=== PATIENT | male | born 1945 | race Hispanic/Latino ===

== ENCOUNTER 2018-09-15 13:25 | Observation (INO) | payer MEDICARE ==
[~2018-09-15] VITALS: Ht 175.3 cm; Wt 80.3 kg
[~2018-09-15 13:25] MED LIST: ASPIR 8181 MG PO; CEPHALEXIN500 MG PO; COREG3.125 MG PO; GLIPIZIDE5 MG PO; LEVEMIR100 UNIT/1 SQ; METFORMIN HCL500 MG PO; PLAVIX75 MG PO; PRAVASTATIN SOD20 MG PO
[2018-09-15] MEDS ORDERED: ASPIRIN 81 MG CHEW TAB PO ONE ×2 (14:15→21:00)
[2018-09-15 14:21] LABS: BILIRUBIN,URINE 1+ (NEGATIVE); CLARITY,URINE SL CLOUDY (CLEAR); COLOR,URINE STRAW (YELLOW); KETONES,URINE TRACE (NEGATIVE); LEUKOCYTE ESTERASE ,URINE NEGATIVE (NEGATIVE); NITRITE,URINE NEGATIVE (NEGATIVE); PROTEIN,URINE DIPSTICK 1+ (NEGATIVE); URINE UROBILINOGEN 1 mg/dL (0.2 - 1)
--- NOTE | 2018-09-15 14:26 | Diagnostic Imaging Report ---
Examination: Single AP view of the chest. COMPARISON: None. INDICATION: Weakness DISCUSSION: Lines/tubes: None. Lungs: The lungs are well inflated and clear. No pneumonia or pulmonary edema. Pleura: No pleural effusion or pneumothorax. Heart and mediastinum: The heart and the mediastinum are unremarkable. Bones and soft tissues: No acute bony abnormalities. IMPRESSION: 1. No acute cardiopulmonary abnormalities. Signed by: Dr. Adeel Dominique M.D. on 09/15/2018 2:22 PM
[2018-09-15 14:29] LABS: BACTERIA,URINE FEW /HPF; HYALINE CASTS 0-1 (0-1); MUCUS,URINE MANY (RARE)
[2018-09-15 14:32] LABS: BASOPHILS % 0.7 % (0.0-1.0); EOSINOPHILS # (AUTO) 0.1 (0.0-0.4); HEMATOCRIT 41.9 % (38.2-49.6); HEMOGLOBIN 14.8 g/dL (14.0-18.0); LYMPHOCYTES # (AUTO) 0.9 (1.0-3.2); LYMPHOCYTES % 15.3 % (18.0-39.1); MEAN CORPUSCULAR HGB CONC 35.3 g/dL (31-35); MEAN CORPUSCULAR VOLUME 87.7 fL (81-99); MONOCYTES # (AUTO) 0.6 (0.2-0.8); MONOCYTES % 9.4 % (4.4-11.3); NEUTROPHILS # (AUTO) 4.4 (2.1-6.9); NEUTROPHILS % 73.4 % (38.7-80.0); PLATELET COUNT 223 x10e3/uL (140-360); RED BLOOD COUNT 4.78 x10e6/uL (4.3-5.7); RED CELL DISTRIBUTION WIDTH 12.2 % (11.7-14.4)
[2018-09-15 14:39] LABS: INR 0.94; PROTHROMBIN TIME 13.4 seconds (11.9-14.5)
[2018-09-15 14:40] LABS: PARTIAL THROMBOPLASTIN TIME 30.3 seconds (23.8-35.5)
[2018-09-15 14:49] LABS: ALANINE AMINOTRANSFERASE 17 IU/L (0-55); ALBUMIN/GLOBULIN RATIO 1.1 (0.8-2.0); ALKALINE PHOSPHATASE 81 IU/L (40-150); AMYLASE 49 U/L (25-125); ANION GAP 12.5 mmol/L (8-16); BLOOD UREA NITROGEN 19 mg/dL (7-26); BUN/CREATININE RATIO 24 (6-25); CALCIUM 9.8 mg/dL (8.4-10.2); CARBON DIOXIDE 25 mmol/L (22-29); CHLORIDE 106 mmol/L (98-107); CREATINE KINASE 259 IU/L (30-200); CREATININE, SERUM 0.78 mg/dL (0.72-1.25); EST GLOMERULAR FILTRATION RATE > 60 ML/MIN (60-); GLUCOSE 173 mg/dL (74-118); LIPASE 31 U/L (8-78); MAGNESIUM 2.2 MG/DL (1.3-2.1); POTASSIUM 3.5 mmol/L (3.5-5.1); SODIUM 140 mmol/L (136-145)
[2018-09-15] MEDS ORDERED: DEXTROSE 50% SYRINGE 50 ML IV PRN (16:15)
[2018-09-15] MEDS ORDERED: ONDANSETRON HCL INJ 2 MG/ML VIAL IV PRN (16:15)
--- OUTSIDE RECORDS SUMMARY | 2018-09-15 16:27 | XMS REPORT ---
Author Author [facility] Address Unknown Phone Unavailable Care Team Providers Care Machine Candle Molder Name Role Phone Willa JOLLY Unavailable Unavailable Problems This patient has no known problems. Allergies, Adverse Reactions, Alerts This patient has no known allergies or adverse reactions. Medications This patient has no known medications. Results Test Description Test Time Test Comments Text Results Atomic Results Result Comments CHEST SINGLE (PORTABLE) 2018-09-15 14:21:00 [place] [address] Patient Name: NICK JEFFERSON MR #: [id number] : 1945 Age/Sex: 72/M Req #: [id number] Adm Physician: Ordered by: MAME HERRING RESPIRATORY DIRECTOR Report #: [id number] Location: ER Room/Bed: Procedure: [id number] DX/CHEST SINGLE (PORTABLE) Exam Date: 09/15/18 Exam Time: 1405 REPORT STATUS: Signed Examination: Single AP view of the chest. COM PARISON: None. INDICATION: Weakness DISCUSSION: Lines/tubes: None. Lungs: The lungs are well inflated and clear. No pneumonia or pulmonary edema. Pleura: No pleural effusion or pneumothorax. Heart and mediastinum: The heart and the mediastinum are unremarkable. Bones and soft tissues: No acute bony abnormalities. IMPRESSION: 1. No acute cardiopulmonary abnormalities. Signed by: Dr. Bella Lyles M.D. on 09/15/2018 2:22 PM Dictated By: BELLA LYLES MD 142 Transcribed By: CARLOS on 09/15/18 142 COPY TO: MAME HERRING NP
[2018-09-15] MEDS ORDERED: HEPARIN SOD (PORCINE) 5,000 UNIT/ML VIAL IV ONE (17:00)
[2018-09-15] MEDS: INSULIN LISPRO 100 UNIT/1 ML 3ML VIAL SQ SCH ×2 (17:05→20:39)
[2018-09-15] MEDS: GLIPIZIDE 5 MG TAB PO SCH (17:11)
[2018-09-15] MEDS: CARVEDILOL 3.125 MG TAB PO SCH (17:29)
--- NOTE | 2018-09-15 17:58 | History and Physical ---
INDICATIONS: Myocardial infarction. HISTORY OF PRESENT ILLNESS: Mr. Montano is a diabetic,72-year-old gentleman with history of moderate coronary artery disease and known 50% coronary blockage by angiography performed a year ago. He comes in with just feeling unwell, palpitations, heaviness and fullness in his chest and epigastric region. His symptoms have resolved. He thought this was hypoglycemia; however, his blood sugars have been normal. During his evaluation in the emergency room, his electrocardiogram showed left ventricular hypertrophy; however, CPK and CPK-MB are elevated with trivial elevation of troponin consistent with myocardial infarction. REVIEW OF SYSTEMS: Negative except as dictated in the history of present illness. PAST MEDICAL HISTORY: Diabetes mellitus, coronary artery disease, hypertension and hyperlipidemia. SOCIAL HISTORY: Patient does not smoke or drink. ALLERGIES: BUTORPHANOL, CODEINE, HYDROCODONE. MEDICATIONS AT HOME: Were reviewed. The patient is on clopidogrel. PHYSICAL EXAMINATION: VITALS: Afebrile. Heart rate 82, blood pressure 152/87, O2 sats 99%. CARDIOVASCULAR: Regular rhythm, No S4 gallop, no murmurs. LUNGS: Clear to auscultation bilaterally. ABDOMEN: Soft. Bowel sounds heard adequately EXTREMITIES: Pedal pulses are 2+. Chest x-ray and EKG were reviewed. LABORATORY DATA: Serum creatinine is 0.78, CPK 259, CPK-MB 2.2, troponin 0.016. Blood sugars are 165. Hemoglobin 14.8. ASSESSMENT: Non-ST segment elevation myocardial infarction. RECOMMENDATIONS: Anticoagulation with aspirin, intravenous heparin as well as clopidogrel. Continue beta tiara and statin. Echocardiogram to evaluate for ejection fraction and valvular function. Coronary angiography is indicated. I will coordinate this with the laborer powerhouse. I thank Dr. Mazariegos for this consultation. Job#: [id number]
[2018-09-15 18:09] VITALS: BP 161/79
[2018-09-15 18:25] VITALS: BP 161/79
[2018-09-15 18:31] VITALS: BP 161/79
[2018-09-15 20:00] VITALS: BP 143/67
[2018-09-15] MEDS ORDERED: ASPIRIN 81 MG CHEW TAB PO SCH (21:00)
[2018-09-15] MEDS ORDERED: PRAVASTATIN 20 MG TAB PO SCH (21:00)
[2018-09-15 22:44] LABS: CREATINE KINASE MB 8.8 ng/mL (0-5.0)
[2018-09-16] VITALS: BP 137/75
[2018-09-16 04:00] VITALS: BP 128/74
[2018-09-16 07:06] LABS: BASOPHILS # (AUTO) 0.1 (0.0-0.1); BASOPHILS % 0.9 % (0.0-1.0); EOSINOPHILS # (AUTO) 0.2 (0.0-0.4); HEMATOCRIT 38.6 % (38.2-49.6); HEMOGLOBIN 13.5 g/dL (14.0-18.0); LYMPHOCYTES # (AUTO) 1.3 (1.0-3.2); LYMPHOCYTES % 23.7 % (18.0-39.1); MEAN CORPUSCULAR VOLUME 88.7 fL (81-99); MONOCYTES # (AUTO) 0.8 (0.2-0.8); MONOCYTES % 13.9 % (4.4-11.3); NEUTROPHILS # (AUTO) 3.3 (2.1-6.9); NEUTROPHILS % 58.1 % (38.7-80.0); PLATELET COUNT 182 x10e3/uL (140-360); RED BLOOD COUNT 4.35 x10e6/uL (4.3-5.7); RED CELL DISTRIBUTION WIDTH 12.2 % (11.7-14.4)
[2018-09-16 07:26] LABS: ALANINE AMINOTRANSFERASE 14 IU/L (0-55); ALBUMIN 3.3 g/dL (3.5-5.0); ALKALINE PHOSPHATASE 66 IU/L (40-150); ANION GAP 10.7 mmol/L (8-16); BLOOD UREA NITROGEN 17 mg/dL (7-26); BUN/CREATININE RATIO 22 (6-25); CALCIUM 9.3 mg/dL (8.4-10.2); CARBON DIOXIDE 26 mmol/L (22-29); CHLORIDE 105 mmol/L (98-107); CHOL/HDL RATIO 2.7 (3.9-4.7); CHOLESTEROL 145 MD/DL (0-199); CREATININE, SERUM 0.78 mg/dL (0.72-1.25); EST GLOMERULAR FILTRATION RATE > 60 ML/MIN (60-); GLUCOSE 151 mg/dL (74-118); HDL CHOLESTEROL 53 MG/DL (40-60); LDL CHOLESTEROL 69 MG/DL (60-130); POTASSIUM 3.7 mmol/L (3.5-5.1); SODIUM 138 mmol/L (136-145); TRIGLYCERIDES 117 MG/DL (0-149)
[2018-09-16] MEDS: INSULIN LISPRO 100 UNIT/1 ML 3ML VIAL SQ SCH (07:30)
[2018-09-16] MEDS: GLIPIZIDE 5 MG TAB PO SCH (08:10)
[2018-09-16] MEDS: CARVEDILOL 3.125 MG TAB PO SCH (08:10)
[2018-09-16 08:17] VITALS: BP 115/67
[2018-09-16] MEDS ORDERED: CLOPIDOGREL BISULFATE 75 MG TAB PO SCH ×2 (09:00)
[2018-09-16] MEDS ORDERED: NON-FORMULARY MEDICATION (Insulin Detemir (Levemir) 40 UNITS) SQ SCH (09:00)
[2018-09-16] MEDS ORDERED: ASPIRIN 325 MG TAB EC PO SCH (09:00)
[2018-09-16] MEDS ORDERED: INSULIN DETEMIR 100 UNIT/ML PEN SQ SCH (09:00)
[2018-09-16] MEDS ORDERED: COREG3.125 MG PO (09:05)
[2018-09-16] MEDS ORDERED: LISINOPRIL2.5 MG PO (09:06)
--- NOTE | 2018-09-16 10:39 | Progress Note ---
DATE: September 16, 2018 CARDIOLOGY PROGRESS NOTE SUBJECTIVE: Patient is without any complaints this morning. He states that he feels well. He denies any shortness of breath, chest pain, or palpitations. He states that he has been out of some of his home medications for the last 2 weeks. OBJECTIVE VITAL SIGNS: Temperature 96.6, pulse 82, respiratory rate 16, blood pressure 115/67, oxygen saturation 99% on room air. GENERAL: Alert and oriented x3, resting comfortably in bed, does not appear to be in any acute distress. LUNGS: Clear to auscultation throughout. No wheezing. No rhonchi or crackles. CARDIOVASCULAR: Regular rate and rhythm. Normal S1, S2. No S3 or S4 auscultated. NECK: Supple. No JVD noted. ABDOMEN: Rounded, soft, nontender. EXTREMITIES: Lower extremities; no edema, 2+ pulses. CARDIOVASCULAR MEDICATIONS 1. Plavix 75 mg p.o. daily. 2. Coreg 3.125 mg p.o. b.i.d. 3. Aspirin 81 mg p.o. h.s. 4. Glipizide 5 mg p.o. b.i.d. LABS: WBC 5.62, hemoglobin 13.5, hematocrit 38.6, platelets 182. Sodium 138, potassium 3.7, BUN 17, creatinine 0.78, glucose 153, AST 21, ALT 14. CK-MB 7.0, creatinine kinase 178, troponin 0.015, total cholesterol 145, LDL 69, HDL 53. TELEMETRY: Sinus rhythm. ASSESSMENT 1. Reports of arrhythmia. 2. History of hypertension. 3. Coronary artery disease with mild disease per patient reporting. RECOMMENDATIONS: Continue the above-listed cardiac medications. Patient advised to increase fluids to 2-3 L every 24 hours. Patient is to follow up with cardiology next week, Tuesday or Tuesday. At that time, labs will be repeated. We will evaluate ischemic workup with a nuclear stress test as outpatient. We will continue to monitor this patient very closely. Echocardiogram repeated this morning, we will review. Dictated by: Soha Serna NP Job#: [id number] ROSIBEL
== END 2018-09-16 09:39 | disposition home or self-care (01) ==
LOC: ER 13:25 → ERHOLD 16:24 → IMCU 17:59
PROVIDERS: ADMIT Internal Medicine Interventional Cardiology; ATTEND Internal Medicine Interventional Cardiology
DX: I21.4 Non-ST elevation (NSTEMI) myocardial infarction (principal); R00.2 Palpitations; R94.31 Abnormal electrocardiogram [ECG] [EKG]; I51.7 Cardiomegaly; E78.5 Hyperlipidemia, unspecified; E11.9 Type 2 diabetes mellitus without complications; I48.91 Unspecified atrial fibrillation; Z87.891 Personal history of nicotine dependence; I25.10 Atherosclerotic heart disease of native coronary artery without angina pectoris; Z88.5 Allergy status to narcotic agent; Z88.8 Allergy status to other drugs, medicaments and biological substances
CPT/HCPCS: 36415 ×2; 71045; 80053 ×2; 80061; 81001; 82150; 82550 ×2; 82553 ×2; 82948 ×2; 83690; 83735; 84484 ×2; 85025 ×2; 85610; 85730; 93005; 93306; 99284; G0378 ×2; J1644

== ENCOUNTER 2018-10-06 08:23 | Observation (INO) | payer MEDICARE ==
[~2018-10-06] VITALS: Ht 175.3 cm; Wt 80.0 kg
[~2018-10-06 08:23] MED LIST changes: +LISINOPRIL2.5 MG PO
--- NOTE | 2018-10-06 08:41 | NUR ---
WENT TO LOBBY TO BRING PT BACK TO ER RM 3. SON INFORMED ME THAT PT IN RESTROOM AND CURRENTLY HAVING LOOSE STOOL INSTEAD OF CONSTIPATION DUE TO TAKING AN OTC MED LAST NIGHT. INFORMED DR. GRANADOS AND CHARGE NURSE TC LEON.
[2018-10-06] MEDS ORDERED: SODIUM CHLORIDE 0.9% 1000ML 1,000 ML IV STA (08:58)
[2018-10-06] MEDS ORDERED: MORPHINE SULFATE INJ 4 MG/ML INJ IV STA (08:58)
[2018-10-06] MEDS ORDERED: FAMOTIDINE 20 MG/2 ML VIAL IV ONE (09:00)
[2018-10-06] MEDS ORDERED: ONDANSETRON HCL INJ 2 MG/ML VIAL IV ONE (09:00)
[2018-10-06 09:13] LABS: BASOPHILS # (AUTO) 0.1 (0.0-0.1); BASOPHILS % 0.6 % (0.0-1.0); EOSINOPHILS % 0.5 % (0.0-6.0); HEMATOCRIT 40.5 % (38.2-49.6); HEMOGLOBIN 14.4 g/dL (14.0-18.0); LYMPHOCYTES # (AUTO) 0.9 (1.0-3.2); LYMPHOCYTES % 9.7 % (18.0-39.1); MEAN CORPUSCULAR HEMOGLOBIN 31.2 pg (28-32); MEAN CORPUSCULAR HGB CONC 35.6 g/dL (31-35); MEAN CORPUSCULAR VOLUME 87.7 fL (81-99); MONOCYTES # (AUTO) 0.6 (0.2-0.8); MONOCYTES % 6.9 % (4.4-11.3); NEUTROPHILS # (AUTO) 7.2 (2.1-6.9); NEUTROPHILS % 81.8 % (38.7-80.0); PLATELET COUNT 217 x10e3/uL (140-360); RED BLOOD COUNT 4.62 x10e6/uL (4.3-5.7); RED CELL DISTRIBUTION WIDTH 12.2 % (11.7-14.4)
[2018-10-06] MEDS ORDERED: MINERAL OIL 132 ML BTL PR ONE (09:15)
[2018-10-06] MEDS ORDERED: DIATRIZOATE MEGL/DIATRIZOA SOD 30 ML BTL PO ONE (09:16)
[2018-10-06 09:30] LABS: ALANINE AMINOTRANSFERASE 13 IU/L (0-55); ALBUMIN 3.8 g/dL (3.5-5.0); ALKALINE PHOSPHATASE 79 IU/L (40-150); ANION GAP 13.6 mmol/L (8-16); BLOOD UREA NITROGEN 15 mg/dL (7-26); BUN/CREATININE RATIO 18 (6-25); CALCIUM 9.5 mg/dL (8.4-10.2); CARBON DIOXIDE 23 mmol/L (22-29); CHLORIDE 104 mmol/L (98-107); CREATININE, SERUM 0.82 mg/dL (0.72-1.25); EST GLOMERULAR FILTRATION RATE > 60 ML/MIN (60-); GLUCOSE 219 mg/dL (74-118); POTASSIUM 3.6 mmol/L (3.5-5.1); SODIUM 137 mmol/L (136-145)
--- NOTE | 2018-10-06 10:51 | Diagnostic Imaging Report ---
PROCEDURE: CT ABDOMEN AND PELVIS WITHOUT CONTRAST TECHNIQUE: The abdomen and pelvis were scanned utilizing a multidetector helical scanner from the diaphragm to the lesser trochanter without IV contrast. Oral Gastrografin was administered. Coronal and sagittal multiplanar reformations were obtained. Dose sparing pathology was utilized. DLP: 461.58 mGy-cm COMPARISON: None. INDICATIONS: OBSTRUCTION, CONSTIPATION FINDINGS: ABSENCE OF INTRAVENOUS CONTRAST DECREASES SENSITIVITY FOR DETECTION OF FOCAL LESIONS AND VASCULAR PATHOLOGY. LOWER THORAX: Normal. HEPATOBILIARY: No focal hepatic lesions. No biliary ductal dilatation. SPLEEN: No splenomegaly. PANCREAS: No focal masses or ductal dilatation. ADRENALS: No adrenal nodules. KIDNEYS/URETERS: There are multiples renal cystic lesions with the largest present on the right side measuring 3.5 cm. A right lower pole cystic lesion has a vague area of rim calcification. Three phase renal mass protocol CT is recommended for further evaluation. PELVIC ORGANS/BLADDER: Prostate calcification. PERITONEUM / RETROPERITONEUM: No free air or fluid. 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 LYMPH NODES: No lymphadenopathy. VESSELS: Vascular calcification. GI TRACT: No distention or wall thickening. Mild amount of fecal material present within the right colon. The appendix is normal. BONES AND SOFT TISSUES: Multilevel degenerative changes of the spine with disc space narrowing at L2-L3, L3-L4, severe at L4-L5 and moderate at L5-S1. IMPRESSION: 1. No acute abnormality within the abdomen or pelvis. 2. Multiple renal cystic lesions with an indeterminant right lower pole lesion with calcification present. 3. Followup elective three-phase renal mass protocol CT is recommended. 4. Mild amount of residual fecal material within the right colon. Jese Gonzalez D.O. Dictated by: Jese Gonzalez D.O. on 10/06/2018 at 11:00 Electronically approved by: Jese Gonzalez D.O. on 10/06/2018 at 11:00
[2018-10-06] MEDS ORDERED: ZOLPIDEM TARTRATE 5 MG TAB PO PRN ×2 (12:45→13:30)
[2018-10-06] MEDS ORDERED: PEG (High)/E-LYTE SOLN 4,000 ML BTL PO ONE (12:45)
[2018-10-06] MEDS ORDERED: SOD PHOSPHATE/SOD BIPHOSPHATE ENEMA 132 ML BTL PR PRN (12:45)
[2018-10-06] MEDS ORDERED: LACTULOSE SYRUP 20 GM/30 ML UDC PO PRN (12:45)
[2018-10-06] MEDS ORDERED: ONDANSETRON HCL INJ 2 MG/ML VIAL IV PRN (12:45)
[2018-10-06] MEDS ORDERED: ENALAPRILAT IV INJ 1.25 MG/ML VIAL IV PRN (12:45)
[2018-10-06] MEDS ORDERED: MAGNESIUM HYDROXIDE 30 ML UDC PO ONE (12:45)
[2018-10-06] MEDS ORDERED: DIPHENHYDRAMINE HCL INJ 50 MG/ML VIAL IV PRN ×2 (12:45→13:30)
[2018-10-06] MEDS ORDERED: HYDROMORPHONE 2MG/ML 2 MG/ML ML IV PRN (13:30)
[2018-10-06 13:59] LABS: BILIRUBIN,URINE NEGATIVE (NEGATIVE); CLARITY,URINE CLEAR (CLEAR); COLOR,URINE YELLOW (YELLOW); KETONES,URINE TRACE (NEGATIVE); LEUKOCYTE ESTERASE ,URINE NEGATIVE (NEGATIVE); NITRITE,URINE NEGATIVE (NEGATIVE); PROTEIN,URINE DIPSTICK NEGATIVE (NEGATIVE); URINE UROBILINOGEN 0.2 mg/dL (0.2 - 1)
[2018-10-06 14:32] LABS: BACTERIA,URINE FEW /HPF; TRANSITIONAL EPI CELLS,URINE FEW; WBC,URINE (MAN) 0-5 /HPF (0-5)
[2018-10-06 14:33] LABS: MUCUS,URINE RARE (RARE)
--- NOTE | 2018-10-06 17:00 | NUR ---
Patient received from ER. Respirations even and unlabored, no distress noted at this time. Denies any pain at the moment. Bed locked and in low position, and call light within reach.
[2018-10-06 17:25] VITALS: BP 166/82
--- NOTE | 2018-10-06 18:50 | NUR ---
WALKING ROUNDS PERFORMED, RECEIVED PT SITTING ON TOILET, PT IS AAOX3, RR EVEN AND NON-LABORED, ON RA. LEFT PT SITTING ON TOILET WITH INSTRUCTIONS TO PULL RED CORD FOR ASSISTANCE.
[2018-10-06 20:00] VITALS: BP 123/75
[2018-10-06] MEDS ORDERED: HYDROCORTISONE 2.5% PR CRM 1 OZ TUBE PR PRN (21:30)
--- NOTE | 2018-10-06 21:32 | NUR ---
SPOKE WITH MD REED COVERING FOR MD PUENTE, INFORMED MD OF PT REPORTS OF BURNING AT THE RECTUM AND PT HAVING CONSTANT BM'S. NEW ORDERS RECEIVED.
[2018-10-06 21:40] VITALS: BP 123/75
[2018-10-07] VITALS: BP 136/78
[2018-10-07 04:00] VITALS: BP 148/78
[2018-10-07 06:06] LABS: BASOPHILS # (AUTO) 0.1 (0.0-0.1); BASOPHILS % 0.5 % (0.0-1.0); EOSINOPHILS % 0.3 % (0.0-6.0); HEMATOCRIT 42.4 % (38.2-49.6); HEMOGLOBIN 14.8 g/dL (14.0-18.0); LYMPHOCYTES # (AUTO) 1.3 (1.0-3.2); LYMPHOCYTES % 11.9 % (18.0-39.1); MEAN CORPUSCULAR HEMOGLOBIN 30.7 pg (28-32); MEAN CORPUSCULAR HGB CONC 34.9 g/dL (31-35); MONOCYTES % 9.5 % (4.4-11.3); NEUTROPHILS # (AUTO) 8.3 (2.1-6.9); NEUTROPHILS % 77.5 % (38.7-80.0); PLATELET COUNT 227 x10e3/uL (140-360); RED BLOOD COUNT 4.82 x10e6/uL (4.3-5.7); RED CELL DISTRIBUTION WIDTH 12.1 % (11.7-14.4)
[2018-10-07 06:28] LABS: ANION GAP 11.1 mmol/L (8-16); BLOOD UREA NITROGEN 12 mg/dL (7-26); BUN/CREATININE RATIO 15 (6-25); CALCIUM 10.1 mg/dL (8.4-10.2); CARBON DIOXIDE 29 mmol/L (22-29); CHLORIDE 102 mmol/L (98-107); CREATININE, SERUM 0.79 mg/dL (0.72-1.25); EST GLOMERULAR FILTRATION RATE > 60 ML/MIN (60-); GLUCOSE 183 mg/dL (74-118); POTASSIUM 4.1 mmol/L (3.5-5.1); SODIUM 138 mmol/L (136-145)
[2018-10-07 08:00] VITALS: BP 139/75
[2018-10-07] MEDS ORDERED: LISINOPRIL 2.5 MG TAB PO SCH (09:00)
[2018-10-07] MEDS ORDERED: METFORMIN HCL 500 MG TAB PO SCH (09:00)
[2018-10-07] MEDS ORDERED: CARVEDILOL 3.125 MG TAB PO SCH (09:00)
--- NOTE | 2018-10-07 09:03 | NUR ---
ASSESSMENT COMPLETE NO DISTRESS NOTED,UPDATED ON POC VOICED UNDERSTANDING, DENIES PAIN AT THIS TIME, R AC F20G NO SS OF INFILTRATION NOTED, NO OTHER CO VOICED CALL LIGHT IN REACH WILL CONTINUE TO MONITOR
[2018-10-07 09:07] VITALS: BP 139/75
--- NOTE | 2018-10-07 09:46 | NUR ---
PAGED DR PARIKH INSOLE CHANNELER FOR DR PUENTE, RE: PT BEING DISCHARGED. AWAITING CALL BACK
--- NOTE | 2018-10-07 09:49 | NUR ---
SPOKE WITH DR PARIKH PT OK TO DC HOME PER GI STANDPOINT,
--- NOTE | 2018-10-07 10:17 | History and Physical ---
HISTORY AND PHYSICAL AND DISCHARGE SUMMARY CHIEF COMPLAINT: Abdominal pain, constipation. HPI: This is a 72-year-old male with past medical history of hypertension and diabetes, who comes into the ED with complaints of constipation ongoing for the last 3 days prior to arrival to the hospital. Patient reports that he has increased amounts of starches due to the holidays, has been severely constipated to the point that when he was on the restroom, he was trying to defecate but he has severe pain in the rectum leading to a possible hemorrhoid. Patient denies any chest pain or palpitations. He stated that he has never experienced this before. Patient was seen and evaluated at bedside on the medical floor, currently doing well with no other issues at this time. He has already received some stool softeners overnight and he has now had several bowel movements. REVIEW OF SYSTEMS: Pertinent positive: Constipation, abdominal pain. Pertinent negatives: Denies any chest pain, palpitations, nausea, vomiting, diarrhea, dysuria, hematuria, frequency, urgency, lightheadedness, dizziness, headache, shortness of breath, cough, congestion, fever, or any other complaints. The rest of 14-point review of systems have been reviewed with the patient and are negative. ALLERGIES: TO CODEINE, HYDROCODONE, AND BUTORPHANOL. HOME MEDICATIONS: He takes; 1. Aspirin 81 mg daily. 2. Coreg 6.25 mg p.o. b.i.d. 3. Lisinopril 5 mg daily. 4. Metformin 1000 mg daily. 5. Lovastatin 20 mg daily. PAST MEDICAL HISTORY: Hypertension, insomnia, hyperlipidemia, constipation. PAST SURGICAL HISTORY: Reports none. FAMILY HISTORY: Hypertension and diabetes. SOCIAL HISTORY: No drugs, no alcohol, does not smoke. Good social support. LAB FINDINGS: Show white count is 10.7, hemoglobin 14.8, hematocrit is 42, platelets of 227. Chemistry: Sodium 138, potassium 4.1, chloride 102, bicarb 29, anion gap of 11, BUN is 12, creatinine is 0.79, glucose 183, calcium is 10.1. LFTs were normal. Albumin 3.8. Urinalysis negative. MICROBIOLOGY: None. IMAGING STUDIES: CT abdomen and pelvis showed evidence of multiple renal cystic lesions with indeterminate right lower lobe pleural effusion with calcification present. He also has significant amount of residual fecal material within the right colon. PHYSICAL EXAMINATION VITAL SIGNS: Temperature is 97.8, pulse 71, respiratory rate is 18, blood pressure is 148/78, pulse ox 98% on room air. GENERAL: Not in acute distress, alert and oriented x3, cooperative on examination. HEENT: Head normocephalic, atraumatic. Eyes; pupils are equal, round, reactive to light bilaterally. Extraocular muscles are intact bilaterally. Throat; no evidence of any erythema or exudates in the posterior pharynx. Has poor dentition. NECK: Supple with good range of motion. PULMONARY: Clear to auscultation bilaterally. No wheezing, no rales, no rhonchi. No crackles appreciated. CARDIOVASCULAR: Positive S1, S2. No murmurs, gallops, or rubs appreciated. ABDOMEN: Soft, nondistended, nontender to palpation. Bowel sounds present. MUSCULOSKELETAL: Strength is 5/5 throughout. No evidence of any musculoskeletal deficit on examination. No weakness appreciated. NEUROLOGIC: Cranial nerves II through XII are grossly intact. No evidence of neurological deficit on examination. SKIN: Intact. Warm to touch. Good capillary refill. PSYCHIATRIC: Normal affect and mood. EXTREMITIES: No edema. Good range of motion throughout. IMPRESSION 1. Abdominal pain secondary to constipation. 2. Incidental renal cystic lesions requiring outpatient followup. 3. Hypertension. 4. Type 2 diabetes. 5. Hemorrhoids. PLAN: At this time, patient has already had stool softeners with multiple bowel movements. He states he is feeling much better now. He is tolerating diet well. We are going to resume same home medications with no changes. I discussed the CT findings for the renal cystic lesions seen in which he will need to follow up as an outpatient in about 1 month's time and likely to get a referral to nephrology to get an MRI with renal protocol to evaluate the renal cyst for further evaluation. He verbalized understanding to followup accordingly. Otherwise, he is currently doing well. He will be discharged on Anusol hemorrhoid cream upon discharge. Once again on discharge, his vital signs are stable. Labs reviewed and stable. Patient was seen, evaluated, and examined thoroughly on the date of discharge. No distress. Patient is doing currently well with no other issues. Once again, this is going to be history and physical and discharge summary combined as the patient was discharged less than 24 hours and was admitted for underlying constipation. Job#: [id number] PAT
[2018-10-07 11:15] VITALS: BP 123/84
[2018-10-07] MEDS ORDERED: PRAVASTATIN 20 MG TAB PO SCH (21:00)
[2018-10-07] MEDS ORDERED: ASPIRIN 81 MG CHEW TAB PO SCH (21:00)
[2018-10-08] MEDS ORDERED: GABAPENTIN100 MG PO (22:08)
[2018-10-08] MEDS ORDERED: NOVOLOG100 UNITS1 SQ (22:08)
[2018-10-08] MEDS ORDERED: TRESIBA SQ (22:08)
== END 2018-10-07 11:45 | disposition home or self-care (01) ==
LOC: ER 08:23 → ERHOLD 13:07 → MED/SURG 16:34
PROVIDERS: ADMIT Internal Medicine; ATTEND Internal Medicine
DX: K59.00 Constipation, unspecified (principal); E86.0 Dehydration; R33.9 Retention of urine, unspecified; I10 Essential (primary) hypertension; E11.9 Type 2 diabetes mellitus without complications; K64.9 Unspecified hemorrhoids; Z88.5 Allergy status to narcotic agent; Z88.8 Allergy status to other drugs, medicaments and biological substances; Z83.3 Family history of diabetes mellitus; Z82.49 Family history of ischemic heart disease and other diseases of the circulatory system; N28.1 Cyst of kidney, acquired; Z79.4 Long term (current) use of insulin
CPT/HCPCS: 36415 ×2; 74176; 80048; 80053; 81001; 82948; 85025 ×2; 99284; G0378 ×2; J1170; J2270; J2405; J7030; Q9663

== ENCOUNTER 2018-10-08 16:02 | Observation (INO) | payer MEDICARE ==
[~2018-10-08] VITALS: Ht 175.3 cm; Wt 81.2 kg
[2018-10-08] MEDS ORDERED: SODIUM CHLORIDE 0.9% 1000ML 1,000 ML IV STA (16:22)
[2018-10-08] MEDS ORDERED: FAMOTIDINE 20 MG/2 ML VIAL IV ONE ×2 (17:00→21:39)
[2018-10-08] MEDS ORDERED: ONDANSETRON HCL INJ 2 MG/ML VIAL IV ONE (17:00)
[2018-10-08 17:12] LABS: BASOPHILS # (AUTO) 0.1 (0.0-0.1); BASOPHILS % 0.6 % (0.0-1.0); EOSINOPHILS # (AUTO) 0.1 (0.0-0.4); EOSINOPHILS % 0.9 % (0.0-6.0); HEMATOCRIT 41.3 % (38.2-49.6); HEMOGLOBIN 14.5 g/dL (14.0-18.0); LYMPHOCYTES # (AUTO) 1.2 (1.0-3.2); LYMPHOCYTES % 15.3 % (18.0-39.1); MEAN CORPUSCULAR HEMOGLOBIN 30.8 pg (28-32); MEAN CORPUSCULAR HGB CONC 35.1 g/dL (31-35); MEAN CORPUSCULAR VOLUME 87.7 fL (81-99); MONOCYTES # (AUTO) 0.8 (0.2-0.8); MONOCYTES % 9.6 % (4.4-11.3); NEUTROPHILS # (AUTO) 5.8 (2.1-6.9); NEUTROPHILS % 73.2 % (38.7-80.0); PLATELET COUNT 230 x10e3/uL (140-360); RED BLOOD COUNT 4.71 x10e6/uL (4.3-5.7); RED CELL DISTRIBUTION WIDTH 12.1 % (11.7-14.4)
[2018-10-08 17:26] LABS: ALANINE AMINOTRANSFERASE 20 IU/L (0-55); ALBUMIN 3.9 g/dL (3.5-5.0); ALKALINE PHOSPHATASE 74 IU/L (40-150); ANION GAP 12.7 mmol/L (8-16); BLOOD UREA NITROGEN 19 mg/dL (7-26); BUN/CREATININE RATIO 24 (6-25); CALCIUM 9.7 mg/dL (8.4-10.2); CARBON DIOXIDE 25 mmol/L (22-29); CHLORIDE 101 mmol/L (98-107); CREATININE, SERUM 0.78 mg/dL (0.72-1.25); EST GLOMERULAR FILTRATION RATE > 60 ML/MIN (60-); GLUCOSE 143 mg/dL (74-118); POTASSIUM 3.7 mmol/L (3.5-5.1); SODIUM 135 mmol/L (136-145)
--- NOTE | 2018-10-08 17:42 | Diagnostic Imaging Report ---
Exam: Abdominal film Clinical History: Constipation Comparison: CT abdomen and pelvis 10/06/2018 DISCUSSION: Frontal view of the abdomen shows a nonobstructive bowel gas pattern with moderate to marked amount of retained stool.There are no dilated, air-filled loops of bowel. No pneumoperitoneum. No abnormal calcifications.No acute bone abnormality. IMPRESSION: 1. Nonobstructive bowel gas pattern with moderate to marked retained stool suggesting constipation. No pneumoperitoneum.. The staff physician below has personally reviewed this exam on the date of dictation. Signed by: Dr. Jarrod Zhu M.D. on 10/08/2018 5:39 PM
[2018-10-08] MEDS ORDERED: HYDROMORPHONE 1MG/1ML INJ IV PRN (19:45)
[2018-10-08] MEDS ORDERED: ONDANSETRON HCL INJ 2 MG/ML VIAL IV PRN (19:45)
[2018-10-08] MEDS: SODIUM CHLORIDE 0.9% 1000ML 1,000 ML IV SCH (21:51)
[2018-10-08] MEDS ORDERED: NOVOLOG100 UNITS1 SQ (22:08)
[2018-10-08] MEDS ORDERED: GABAPENTIN100 MG PO (22:08)
[2018-10-08] MEDS ORDERED: TRESIBA SQ (22:08)
[2018-10-09] MEDS: SODIUM CHLORIDE 0.9% 1000ML 1,000 ML IV SCH ×2 (06:29→11:20)
[2018-10-09] MEDS ORDERED: HYDROMORPHONE 2MG/ML 2 MG/ML ML IV PRN (17:15)
[2018-10-09] MEDS ORDERED: LORAZEPAM 0.5 MG TAB PO PRN (17:15)
[2018-10-09] MEDS ORDERED: PEG (High)/E-LYTE SOLN 4,000 ML BTL PO ONE ×2 (17:15→21:30)
[2018-10-09] MEDS ORDERED: MINERAL OIL 132 ML BTL PR STA (17:21)
[2018-10-09] MEDS ORDERED: MINERAL OIL 132 ML BTL PR ONE (17:21)
[2018-10-09] MEDS ORDERED: DEXTROSE 50% SYRINGE 50 ML IV PRN (18:15)
[2018-10-09] MEDS ORDERED: GABAPENTIN 100 MG CAP PO PRN (18:15)
--- NOTE | 2018-10-09 19:44 | History and Physical ---
DATE OF SERVICE: 10/09/2018 CHIEF COMPLAINT: Constipation, abdominal pain. HISTORY OF PRESENT ILLNESS: This is a 72-year-old male who was just recently discharged after having some constipation and given some stool softeners. [place] good after having several bowel movements. Now, presents back with worsening abdominal pain consistent with constipation found on imaging studies. Patient reports that when he went home, he took some stool softeners, but it did not work. He also reports he tried to buy the Anusol for his hemorrhoids, but it was too expensive and instead took Preparation H. Patient was seen and evaluated at bedside on the medical floor and ER. Currently, there were no other complaints. GoLYTELY has been ordered for the patient. REVIEW OF SYSTEMS: Pertinent positives: Abdominal pain, constipation. Pertinent negative: Denies any chest pain, palpitation, nausea, vomiting, diarrhea, dysuria, hematuria, frequency, urgency, lightheadedness, dizziness, headaches, shortness of breath, cough, congestion, fever or any other complaints. The rest of [id number] review of systems have been reviewed with the patient and is negative. ALLERGIES: TO CODEINE, HYDROCODONE, BUTORPHANOL. HOME MEDICATIONS 1.Insulin 15 units subcutaneously t.i.d. 2.Metformin 1000 mg p.o. daily. 3.Tarceva 55 units subcutaneously daily. 4.Aspirin 81 mg daily. 5.Carvedilol 6.25 mg p.o. b.i.d. 6.Gabapentin 100 mg daily p.r.n. for restless legs syndrome. 7.Lisinopril 5 mg daily. 8.Pravastatin 40 mg daily. PAST MEDICAL HISTORY: He has type 2 diabetes, hypertension, hyperlipidemia, restless leg syndrome. PAST SURGICAL HISTORY: None. FAMILY HISTORY: Hypertension and diabetes. SOCIAL HISTORY: No drugs. No alcohol. Does not smoke. Good social support. LAB FINDINGS: Show white count of 7.9, hemoglobin 14.5, hematocrit is 41, platelets of 230,000. Chemistry--sodium 135, potassium 3.7, chloride 101, bicarb 25, anion gap of 12, BUN 19, creatinine 0.7, glucose 143, calcium 9.7. Total bilirubin 0.6, AST 37, ALT 20, total protein 7.7, albumin 3.9. MICROBIOLOGY: None. IMAGING STUDIES: Shows consistency of constipation. PHYSICAL EXAMINATION VITAL SIGNS: Temperature is 98.1, pulse 84, respiratory rate is 18, blood pressure 137/78, pulse ox 100% on room air. GENERAL: Not in acute distress, alert and oriented times 3, cooperative on examination. HEENT: Head--normocephalic, atraumatic. Eyes--pupils are equal, round, and reactive to light bilaterally. Extraocular movements intact bilaterally. Throat--no evidence of any erythema or exudates in the posterior pharynx, has poor dentition. NECK: Supple with good range of motion. PULMONARY: Clear to auscultation bilaterally. No wheezing. No rales. No rhonchi. No crackles appreciated. CARDIOVASCULAR: Positive S1, S2. No murmurs, rubs, or gallops appreciated. ABDOMEN: Soft, nondistended, nontender to palpation. Bowel sounds present. MUSCULOSKELETAL: Strength is 5/5 throughout. No evidence of any muscle deficit on examination. No weakness appreciated. NEUROLOGIC: Cranial nerves II through XII are grossly intact. No evidence of any neurologic deficit on exam. SKIN: Intact and warm to touch. Good capillary refill. PSYCHIATRIC: Normal affect and mood. EXTREMITIES: No edema. Good range of motion throughout. IMPRESSION 1.Abdominal pain secondary to constipation. 2.Type 2 diabetes. 3.Hypertension. 4.History of anxiety. PLAN: At this time, GI has been consulted from the ER. We will give him GoLYTELY as well as fleet enemas to help with constipation. We are going to resume his home medications. Put him on insulin sliding scale. Get morning labs. Decrease IV fluids to 75 mL per hour. Give him Lovenox 40 subcutaneously daily. We are going to repeat imaging tomorrow after he has had multiple bowel movements to see if there is any residual. Job#: [id number]
[2018-10-09 20:35] VITALS: BP 166/85
[2018-10-09] MEDS: ASPIRIN 81 MG CHEW TAB PO SCH (21:51)
[2018-10-09] MEDS: PRAVASTATIN 20 MG TAB PO SCH (21:51)
[2018-10-10] VITALS (8 sets, daily range): BP systolic 130–161; BP diastolic 65–80
[2018-10-10] MEDS: SODIUM CHLORIDE 0.9% 1000ML 1,000 ML IV SCH ×3 (03:30→20:08)
[2018-10-10 06:13] LABS: BASOPHILS % 0.6 % (0.0-1.0); EOSINOPHILS # (AUTO) 0.1 (0.0-0.4); HEMATOCRIT 36.9 % (38.2-49.6); LYMPHOCYTES # (AUTO) 1.3 (1.0-3.2); LYMPHOCYTES % 18.5 % (18.0-39.1); MEAN CORPUSCULAR HEMOGLOBIN 30.9 pg (28-32); MEAN CORPUSCULAR HGB CONC 35.2 g/dL (31-35); MEAN CORPUSCULAR VOLUME 87.6 fL (81-99); MONOCYTES # (AUTO) 0.9 (0.2-0.8); MONOCYTES % 13.2 % (4.4-11.3); NEUTROPHILS # (AUTO) 4.5 (2.1-6.9); NEUTROPHILS % 66.3 % (38.7-80.0); PLATELET COUNT 185 x10e3/uL (140-360); RED BLOOD COUNT 4.21 x10e6/uL (4.3-5.7)
[2018-10-10 06:31] LABS: ANION GAP 12.5 mmol/L (8-16); BLOOD UREA NITROGEN 10 mg/dL (7-26); BUN/CREATININE RATIO 13 (6-25); CALCIUM 9.2 mg/dL (8.4-10.2); CARBON DIOXIDE 27 mmol/L (22-29); CHLORIDE 101 mmol/L (98-107); CREATININE, SERUM 0.76 mg/dL (0.72-1.25); EST GLOMERULAR FILTRATION RATE > 60 ML/MIN (60-); GLUCOSE 147 mg/dL (74-118); POTASSIUM 3.5 mmol/L (3.5-5.1); SODIUM 137 mmol/L (136-145)
[2018-10-10] MEDS ORDERED: BISACODYL 5 MG TAB EC PO NR (07:30)
[2018-10-10] MEDS ORDERED: PEG (High)/E-LYTE SOLN 4,000 ML BTL PO NR (07:45)
[2018-10-10] MEDS: LISINOPRIL 2.5 MG TAB PO SCH (09:30)
[2018-10-10] MEDS: CARVEDILOL 3.125 MG TAB PO SCH ×2 (09:30→18:00)
--- NOTE | 2018-10-10 17:14 | Progress Note ---
DATE: October 10, 2018 MEDICINE PROGRESS NOTE SUBJECTIVE: Patient is on GoLYTELY now. He is having some bowel movements. He is scheduled for colonoscopy on tomorrow. He is getting frustrated with the amount of stool output that he is having. I discussed with him the importance of having GoLYTELY in order for a good bowel prep for colonoscopy tomorrow. He verbalized understanding. OBJECTIVE VITAL SIGNS: Temperature 97.6, pulse 69, respiratory rate is 16, blood pressure 139/65, pulse ox 99% on room air. LAB FINDINGS: Show a white count of 6.7, hemoglobin 13, hematocrit 36.9, platelets of 185. CHEMISTRY: Sodium 137, potassium 3.5, chloride 101, bicarb 27, anion gap of 12, BUN is 10, creatinine is 0.76, glucose is 147, calcium is 9.2. IMAGING STUDIES: Abdominal x-ray shows stool retention. PHYSICAL EXAMINATION GENERAL: Not in acute distress. Alert, oriented x3, cooperative on examination. HEENT: Head: Normocephalic, atraumatic. Eyes: Pupils equally round and reactive to light bilaterally. Extraocular movements intact bilaterally. Neck was supple with good range of motion. Throat: No evidence of any erythema or exudates in the posterior pharynx. Has poor dentition. PULMONARY: Clear to auscultation bilaterally. No wheezing, no rales, no rhonchi, no crackles appreciated. CARDIOVASCULAR: Positive S1/S2. No murmurs, rubs or gallops appreciated. ABDOMEN: Soft, nondistended, nontender to palpation. Bowel sounds present. MUSCULOSKELETAL: Strength is 5/5 throughout. No evidence of any musculoskeletal deficit on examination. No weakness appreciated. NEUROLOGICAL: Cranial nerves 2-12 grossly intact. No evidence of any neurological deficit on exam. SKIN: Intact. Warm to touch. Good capillary refill. PSYCHIATRIC: Normal affect and mood. EXTREMITIES: No edema. Good range of motion throughout. IMPRESSION 1. Abdominal pain secondary to constipation. 2. Type 2 diabetes. 3. Hypertension. 4. History of anxiety. PLAN: At this time he is currently getting GoLYTELY for stool prep for colonoscopy tomorrow. He is frustrated with the amount of stool output, but he still has very dark brown urine. We are waiting for it to become clear in order for him to have an appropriate colonoscopy. Continue with IV fluids. Continue with same home medications. Otherwise will continue to monitor closely. Job#: [id number] EV
[2018-10-10] MEDS ORDERED: MINERAL OIL 132 ML BTL PR ONE (17:21)
[2018-10-10] MEDS: PRAVASTATIN 20 MG TAB PO SCH (20:08)
[2018-10-10] MEDS: ASPIRIN 81 MG CHEW TAB PO SCH (20:08)
[2018-10-11] VITALS: BP 162/77
[2018-10-11 04:00] VITALS: BP 142/65
[2018-10-11 05:35] LABS: BASOPHILS % 0.7 % (0.0-1.0); EOSINOPHILS # (AUTO) 0.1 (0.0-0.4); EOSINOPHILS % 1.8 % (0.0-6.0); HEMATOCRIT 35.7 % (38.2-49.6); HEMOGLOBIN 12.5 g/dL (14.0-18.0); LYMPHOCYTES # (AUTO) 1.3 (1.0-3.2); MEAN CORPUSCULAR HEMOGLOBIN 30.8 pg (28-32); MEAN CORPUSCULAR VOLUME 87.9 fL (81-99); MONOCYTES # (AUTO) 0.7 (0.2-0.8); MONOCYTES % 11.7 % (4.4-11.3); NEUTROPHILS % 64.5 % (38.7-80.0); PLATELET COUNT 182 x10e3/uL (140-360); RED BLOOD COUNT 4.06 x10e6/uL (4.3-5.7); RED CELL DISTRIBUTION WIDTH 12.1 % (11.7-14.4)
[2018-10-11 05:58] LABS: ALANINE AMINOTRANSFERASE 16 IU/L (0-55); ALBUMIN 3.2 g/dL (3.5-5.0); ALBUMIN/GLOBULIN RATIO 1.1 (0.8-2.0); ALKALINE PHOSPHATASE 65 IU/L (40-150); ANION GAP 9.2 mmol/L (8-16); BLOOD UREA NITROGEN 7 mg/dL (7-26); BUN/CREATININE RATIO 10 (6-25); CALCIUM 8.8 mg/dL (8.4-10.2); CARBON DIOXIDE 26 mmol/L (22-29); CHLORIDE 104 mmol/L (98-107); CREATININE, SERUM 0.72 mg/dL (0.72-1.25); EST GLOMERULAR FILTRATION RATE > 60 ML/MIN (60-); GLUCOSE 135 mg/dL (74-118); POTASSIUM 3.2 mmol/L (3.5-5.1); SODIUM 136 mmol/L (136-145)
[2018-10-11 07:54] VITALS: BP 133/76
[2018-10-11] MEDS: CARVEDILOL 3.125 MG TAB PO SCH (08:52)
[2018-10-11] MEDS: LISINOPRIL 2.5 MG TAB PO SCH (08:52)
--- NOTE | 2018-10-11 16:46 | Discharge Summary ---
FINAL DISCHARGE DIAGNOSES 1. Abdominal pain secondary to constipation, now resolved. 2. Type 2 diabetes. 3. Hypertension. 4. History of anxiety. CONSULTANTS: GI. VITAL SIGNS: Temperature is 98.4, pulse 66, respiratory rate is 19, blood pressure 133/76. Patient is on room air. LAB FINDINGS: Show white count 6.1, hemoglobin 12.5, hematocrit 35.7, platelets of 182. CHEMISTRY: Sodium 133, potassium is 3.2 replaced, chloride 104, bicarb 26, anion gap of 9.2, BUN is 7, creatinine is 0.72, glucose 135, calcium 8.8. AST 22, ALT 16. Total protein 6.2. MICROBIOLOGY: None. IMAGING STUDIES: Abdominal x-ray shows a nonobstructive bowel gas pattern with moderate to marked retained stool suggesting constipation. No pneumoperitoneum. HOSPITAL COURSE: This is a 72-year-old male who came in with abdominal pain, found to have severe constipation. Patient was just admitted recently and had several bowel movements and then discharged. He now reports the same symptoms. Imaging studies were consistent with severe constipation. GI was consulted and scheduled the patient to have a colonoscopy on October 11, 2018. The patient was on GoLYTELY and had a significant number of bowel movements here. Patient apparently did not want to have the colonoscopy performed, instead wants to be discharged home. Colonoscopy was canceled now because of the patient wanting to leave, and I suggested to him to please follow up as an outpatient with GI in 1 week to have a colonoscopy for further evaluation and management. He verbalized understanding, as well as his at bedside. On the day of discharge, vital signs stable, labs reviewed and stable. Patient seen and evaluated and examined thoroughly on the day of discharge with no other complaints. Patient verbalized understanding and agreed with plan of care to follow up accordingly as an outpatient with the primary care physician in 1 week and the GI specialist in 1 week's time for a colonoscopy. MEDICATIONS: See med reconciliation form. DISPOSITION: To home. CONDITION: Stable. DIET: Heart healthy. In the event of any worsening symptoms, the patient advised to come back to the ED for further evaluation. Discharge summary took greater than 35 minutes. GAGE AMAYA MD Job#: [id number] JERRY
== END 2018-10-11 10:16 | disposition home or self-care (01) ==
LOC: ER 16:02 → ERHOLD 20:49 → IMCU 10-09 21:18
PROVIDERS: ADMIT Internal Medicine; ATTEND Internal Medicine
DX: K59.00 Constipation, unspecified (principal); I10 Essential (primary) hypertension; E11.9 Type 2 diabetes mellitus without complications; Z79.4 Long term (current) use of insulin; F41.9 Anxiety disorder, unspecified; Z88.5 Allergy status to narcotic agent; Z82.49 Family history of ischemic heart disease and other diseases of the circulatory system; Z83.3 Family history of diabetes mellitus; E78.5 Hyperlipidemia, unspecified
CPT/HCPCS: 36415 ×3; 74018; 80048; 80053 ×2; 82948; 83605; 85025 ×3; 96361; 96374; 96375; 99284; G0378 ×4; J2405; J7030 ×3

== ENCOUNTER 2019-06-10 20:19 | Emergency (ER) | payer MEDICARE, OTHER ==
[~2019-06-10] VITALS: Ht 175.3 cm; Wt 78.9 kg
[~2019-06-10 20:19] MED LIST changes: +GABAPENTIN100 MG PO; +NOVOLOG100 UNITS1 SQ; +TRESIBA SQ
--- OUTSIDE RECORDS SUMMARY | 2019-06-10 20:28 | XMS REPORT | Continuity of Care Document ---
Author Author [employer] Address Unknown Phone Unavailable Care Team Providers Care Physical Metallurgist Name Role Phone [employer] Information Exchange Unavailable Unavailable Problems Problem Status Onset Date Classification Date Reported Comments Source Paresthesia Active 05/15/2016 Problem 10/11/2018 [facility] Abdominal pain Active Problem 10/11/2018 [facility] Constipation Active Problem 10/11/2018 [facility] Dehydration Active Problem 10/11/2018 [facility] Elevated CK-MB level Active Problem 10/11/2018 [facility] Palpitations Active Problem 10/11/2018 [facility] Urinary obstruction Active Problem 10/11/2018 [facility] Medications Medication Details Route Status Patient Instructions Ordering Provider Order Date Source Clopidogrel Bisulfate (Plavix) 75 Mg Tablet, 75 Mg Oral Daily Active 10/06/2018 [facility] Glipizide 5 Mg Tablet, 5 Mg Oral Twice A Day Active 10/06/2018 [facility] Insulin Detemir (Levemir) 100 Unit/1 Ml Vial, 40 Units Sub-Q Daily Active 10/06/2018 [facility] Carvedilol (Coreg) 3.125 Mg Tab, 3.125 Mg Oral Twice A Day Active 09/16/2018 [facility] Cephalexin 500 Mg Capsule, 500 Mg Oral Four Times Daily Active 05/15/2016 [facility] Aspirin (Aspir 81) 81 Mg Tablet. Bedkatie Active [facility] Carvedilol (Coreg) 3.125 Mg Tab Twice A Day Active [facility] Gabapentin 100 Mg Capsule Daily as needed for Restlessness Active [facility] Insulin Aspart (Novolog) 100 Units/1 Ml Inj Three Times Daily With Meals Active [facility] Lisinopril 2.5 Mg Tablet Daily Active [facility] Metformin Hcl 500 Mg Tablet Daily Active [facility] Pravastatin Sodium 20 Mg Tablet Bedtime Active [facility] Tresiba 55 Units Daily Active [facility] Allergies, Adverse Reactions, Alerts Substance Category Reaction Severity Reaction type Status Date Reported Comments Source Codeine Unknown Allergy to Substance Active 10/08/2018 [facility] Hydrocodone Unknown Allergy to Substance Active 10/08/2018 [facility] Butorphanol Unknown Allergy to Substance Active 10/08/2018 [facility] Immunizations No Data Provided for This Section Results Order Name Results Value Reference Range Date Interpretation Comments Source Blood leukocytes automated count (number/volume) 6.13 4.8 - 10.8 10/11/2018 [facility] Blood erythrocytes automated count (number/volume) 4.06 4.3 - 5.7 10/11/2018 [facility] Blood hemoglobin measurement (moles/volume) 12.5 14.0 - 18.0 10/11/2018 [facility] Automated blood hematocrit (volume fraction) 35.7 38.2 - 49.6 10/11/2018 [facility] Automated erythrocyte mean corpuscular volume 87.9 81 - 99 10/11/2018 [facility] Automated erythrocyte mean corpuscular hemoglobin (mass per erythrocyte) 30.8 28 - 32 10/11/2018 [facility] Automated erythrocyte mean corpuscular hemoglobin concentration measurement (mass/volume) 35.0 31 - 35 10/11/2018 [facility] RDW BldCo-Rto 12.1 11.7 - 14.4 10/11/2018 [facility] Automated blood platelet count (count/volume) 182 140 - 360 10/11/2018 [facility] Automated blood segmented neutrophil count as percentage of total leukocytes 64.5 38.7 - 80.0 10/11/2018 [facility] Automated blood lymphocyte count as percentage ot total leukocytes 21.0 18.0 - 39.1 10/11/2018 [facility] Automated blood monocyte count as percentage of total leukocytes 11.7 4.4 - 11.3 10/11/2018 [facility] Automated blood eosinophil count as percentage of total leukocytes 1.8 0.0 - 6.0 10/11/2018 [facility] Automated blood basophil count as percentage of total leukocytes 0.7 0.0 - 1.0 10/11/2018 [facility] IM GRANULOCYTES % 0.3 0.0 - 1.0 10/11/2018 [facility] Automated blood neutrophil count 4.0 2.1 - 6.9 10/11/2018 [facility] Blood lymphocytes count (number/volume) 1.3 1.0 - 3.2 10/11/2018 [facility] Blood monocytes automated count (number/volume) 0.7 0.2 - 0.8 10/11/2018 [facility] Automated blood eosinophil count 0.1 0.0 - 0.4 10/11/2018 [facility] Automated blood basophil count (count/volume) 0.0 0.0 - 0.1 10/11/2018 [facility] Absolute Immature Granulocyte (auto 0.02 0 - 0.1 10/11/2018 [facility] Serum or plasma sodium measurement (moles/volume) 136 136 - 145 10/11/2018 [facility] Serum or plasma potassium measurement (moles/volume) 3.2 3.5 - 5.1 10/11/2018 [facility] Serum or plasma chloride measurement (moles/volume) 104 98 - 107 10/11/2018 [facility] Serum or plasma carbon dioxide, total measurement (moles/volume) 26 22 - 29 10/11/2018 [facility] Serum or plasma anion gap 9.2 8 - 16 10/11/2018 [facility] Serum or plasma urea nitrogen measurement (mass/volume) 7 7 - 26 10/11/2018 [facility] Serum or plasma creatinine measurement (mass/volume) 0.72 0.72 - 1.25 10/11/2018 [facility] Serum or plasma urea nitrogen/creatinine mass ratio 10 6 - 25 10/11/2018 [facility] Estimated glomerular filtration rate (GFR) determination > 60 60 10/11/2018 [facility] Glucose measurement 135 74 - 118 10/11/2018 [facility] Serum or plasma calcium measurement (mass/volume) 8.8 8.4 - 10.2 10/11/2018 [facility] Serum or plasma total bilirubin measurement (mass/volume) 0.6 0.2 - 1.2 10/11/2018 [facility] Aspartate Amino Transf (AST/SGOT) 22 5 - 34 10/11/2018 [facility] Serum or plasma alanine aminotransferase measurement (enzymatic activity/volume) 16 0 - 55 10/11/2018 [facility] Serum or plasma protein measurement (mass/volume) 6.2 6.5 - 8.1 10/11/2018 [facility] Serum or plasma albumin measurement (mass/volume) 3.2 3.5 - 5.0 10/11/2018 [facility] Plasma globulin measurement (mass/volume) 3.0 2.3 - 3.5 10/11/2018 [facility] Serum or plasma albumin/globulin mass ratio 1.1 0.8 - 2.0 10/11/2018 [facility] Serum or plasma alkaline phosphatase measurement (enzymatic activity/volume) 65 40 - 150 10/11/2018 [facility] Capillary blood glucose measurement by glucometer (mass/volume) 161 70 - 120 10/08/2018 [facility] Lactic Acid Level 8.8 4.5 - 19.8 10/08/2018 [facility] Urine color determination YELLOW YELLOW 10/06/2018 [facility] Urine clarity CLEAR CLEAR 10/06/2018 [facility] Specific gravity of Urine by Test strip 1.015 1.010 - 1.025 10/06/2018 [facility] Urine pH measurement by automated test strip 6.5 5 - 7 10/06/2018 [facility] Urine leukocyte esterase detection by dipstick NEGATIVE NEGATIVE 10/06/2018 [facility] Urine nitrite detection NEGATIVE NEGATIVE 10/06/2018 [facility] Urine protein measurement by test strip (mass/volume) NEGATIVE NEGATIVE 10/06/2018 [facility] Urine glucose detection 2+ NEGATIVE 10/06/2018 [facility] Urine ketones detection by automated test strip TRACE NEGATIVE 10/06/2018 [facility] Urine urobilinogen measurement by test strip (mass/volume) 0.2 0.2 - 1 10/06/2018 [facility] Urine total bilirubin measurement (mass/volume) NEGATIVE NEGATIVE 10/06/2018 [facility] Urine erythrocytes detection NEGATIVE NEGATIVE 10/06/2018 [facility] Automated urine sediment leukocyte count by microscopy (number/high power field) 0-5 0 - 5 10/06/2018 [facility] Erythrocytes detection in urine sediment by light microscopy NONE 0 - 5 10/06/2018 [facility] Bacteria detection in urine sediment by light microscopy FEW NONE 10/06/2018 [facility] Epithelial cells detection in urine sediment by light microscopy NONE NONE 10/06/2018 [facility] Transitional cells detection in urine sediment by light microscopy FEW NONE 10/06/2018 [facility] Mucus detection in urine sediment by light microscopy RARE RARE 10/06/2018 [facility] Serum or plasma triglyceride measurement (mass/volume) 117 0 - 149 09/16/2018 [facility] Serum or plasma cholesterol measurement (mass/volume) 145 0 - 199 09/16/2018 [facility] Serum or plasma cholesterol in LDL measurement (mass/volume) 69 60 - 130 09/16/2018 [facility] Serum or plasma cholesterol in HDL measurement (mass/volume) 53 40 - 60 09/16/2018 [facility] Serum or plasma total cholesterol/cholesterol in HDL mass ratio 2.7 3.9 - 4.7 09/16/2018 [facility] Serum or plasma creatine kinase measurement (enzymatic activity/volume) 178 30 - 200 09/16/2018 [facility] Serum or plasma creatine kinase MB measurement (mass/volume) 7.00 0 - 5.0 09/16/2018 [facility] Troponin I measurement by highly sensitive enzyme immunoassay 0.015 0 - 0.300 09/16/2018 [facility] Prothrombin time (PT) in platelet poor plasma by coagulation assay 13.4 11.9 - 14.5 09/15/2018 [facility] INR in Platelet poor plasma by Coagulation assay 0.94 09/15/2018 [facility] Activated partial thromboplastin time (aPTT) in platelet poor plasma bycoagulation assay 30.3 23.8 - 35.5 09/15/2018 [facility] Serum or plasma magnesium measurement (mass/volume) 2.2 1.3 - 2.1 09/15/2018 [facility] Serum or plasma amylase measurement (enzymatic activity/volume) 49 25 - 125 09/15/2018 [facility] Serum or plasma lipase measurement (enzymatic activity/volume) 31 8 - 78 09/15/2018 [facility] Hyaline casts detection in urine sediment by light microscopy 0-1 0 - 1 09/15/2018 [facility] Pathology Reports No Data Provided for This Section Diagnostic Reports No Data Provided for This Section Consultation Notes No Data Provided for This Section Discharge Summaries No Data Provided for This Section History and Physicals No Data Provided for This Section Vital Signs No Data Provided for This Section Encounters Location Location Details Encounter Type Encounter Number Reason For Visit Attending Provider ADM Date DC Date Status Source Discharged Inpatient (obs) [id number] MT HARRISON MD 09/15/2018 09/16/2018 [facility] Discharged Inpatient (obs) [id number] GAGE AMAYA MD 10/06/2018 10/07/2018 [facility] Discharged Inpatient (obs) [id number] GAGE AMAYA MD 10/08/2018 10/11/2018 [facility] Procedures Procedure Code Date Perfomer Comments Source CT of abdomen and pelvis without contrast [id number] 10/06/2018 [facility] Assessment and Plan No Data Provided for This Section Plan of Care Plan of Care Date Source Discharge Date 10/11/18 10:16am Disposition HOME, SELF-CARE Instructions/Education Provided Constipation - Adult Prescriptions See Medication Section Additional Instructions/Education CONTINUE HIGH FIBER DIET DIRECTED FOLLOW UP WITH [facility] IN 7-10 DAYS FOLLOW UP WITH GI SPECIALIST INSTRUCTED FOR COLONOSCOPY JOEY MONTEZ 10/11/2018 [facility] Social History Social History Date Source Social History Problem Response Recorded Date/Time Onset Date Status Hx Psychiatric Problems No 05/15/2016 3:25am Not Applicable Not Applicable Hx Eating Disorder No 05/15/2016 3:25am Not Applicable Not Applicable Hx Substance Use Disorder No 05/15/2016 3:25am Not Applicable Not Applicable Hx Alcohol Use No 05/15/2016 3:25am Not Applicable Not Applicable Hx Substance Use Treatment No 05/15/2016 3:25am Not Applicable Not Applicable Hx Physical Abuse No 05/15/2016 3:25am Not Applicable Not Applicable Smoking Status Start Date Stop Date Former smoker 10/11/2018 [facility] Family History Value Date Source Relationship Condition Age at Onset Recorded Date/Time 09 Brother Family history of diabetes mellitus Not Recorded 05/15/2016 4:04am 33 Father FH: Alzheimers disease Not Recorded 05/15/2016 4:05am 31 Mother FH: CVA (cerebrovascular accident) Not Recorded 05/15/2016 4:04am 31 Mother Family history of diabetes mellitus Not Recorded 05/15/2016 4:04am 09 Sister Family history of diabetes mellitus Not Recorded 05/15/2016 4:04am Unlce Family history of diabetes mellitus Not Recorded 05/15/2016 4:04am 10/11/2018 [facility] Advance Directives Order Name Results Value Date Source Advance Directives Advance Directives Directive Response Recorded Date/Time Does the patient have an advance directive? No 10/09/18 8:35pm If yes, is advance directive on file with [facility]? No 10/09/18 8:35pm If not on file with [facility] will patient provide a copy? No 10/09/18 8:35pm Do you have a Directive to Physician? No 10/08/18 4:50pm Do you have a Medical Power of Senior Accounting Associate? No 10/08/18 4:50pm Do you have an out of hospital Do Not Resuscitate Order? No 10/08/18 4:50pm Do you have any special needs we should be aware of? No 10/08/18 4:50pm Do you have a support person here with you today? Yes 10/08/18 4:50pm Did patient receive Notice of Privacy Practices? Yes 10/08/18 4:50pm Did patient receive patient rights and responsibilities? Yes 10/08/18 4:50pm 10/11/2018 [facility] Functional Status No Data Provided for This Section
--- NOTE | 2019-06-10 21:28 | NUR ---
PER ER - PT OKAY TO TAKE HOME DOSE OF CARVEDILOL
[2019-06-10] MEDS ORDERED: CARVEDILOL 12.5 MG TAB PO ONE (21:30)
[2019-06-10 21:59] VITALS: BP 147/86
== END 2019-06-10 22:04 | disposition home or self-care (01) ==
LOC: FSED 20:19
DX: E11.649 Type 2 diabetes mellitus with hypoglycemia without coma (principal); I10 Essential (primary) hypertension; Z79.4 Long term (current) use of insulin; Z79.84 Long term (current) use of oral hypoglycemic drugs
CPT/HCPCS: 82948; 99282

== ENCOUNTER 2019-06-15 09:14 | Emergency (ER) | payer MEDICARE, OTHER ==
[~2019-06-15] VITALS: Ht 175.3 cm; Wt 78.9 kg
--- OUTSIDE RECORDS SUMMARY | 2019-06-15 09:17 | XMS REPORT | Continuity of Care Document ---
Author Author [employer] Address Unknown Phone Unavailable Care Team Providers Care B2B Outside Sales Representative Name Role Phone [employer] Unavailable Unavailable Problems Problem Status Onset Date Classification Date Reported Comments Source Paresthesia Active 05/15/2016 Problem 10/11/2018 [facility] Abdominal pain Active Problem 10/11/2018 [facility] Constipation Active Problem 10/11/2018 [facility] Dehydration Active Problem 10/11/2018 [facility] Elevated CK-MB level Active Problem 10/11/2018 [facility] Palpitations Active Problem 10/11/2018 [facility] Urinary obstruction Active Problem 10/11/2018 [facility] Medications Medication Details Route Status Patient Instructions Ordering Provider Order Date Source Clopidogrel Bisulfate (Plavix) 75 Mg Tablet, 75 Mg Oral Daily Active 10/06/2018 [facility] Glipizide 5 Mg Tablet, 5 Mg Oral Twice A Day Active 10/06/2018 [facility] Insulin Detemir (Levemir) 100 Unit/1 Ml Vial, 40 Units Sub-Q Daily Active 10/06/2018 [facility] Carvedilol (Coreg) 3.125 Mg Tab, 3.125 Mg Oral Twice A Day Active 09/16/2018 [facility] Cephalexin 500 Mg Capsule, 500 Mg Oral Four Times Daily Active 05/15/2016 [facility] Aspirin (Aspir 81) 81 Mg Tablet. Bedkatie Active [facility] Carvedilol (Coreg) 3.125 Mg Tab Twice A Day Active [facility] Gabapentin 100 Mg Capsule Daily as needed for Restlessness Active [facility] Insulin Aspart (Novolog) 100 Units/1 Ml Inj Three Times Daily With Meals Active [facility] Lisinopril 2.5 Mg Tablet Daily Active [facility] Metformin Hcl 500 Mg Tablet Daily Active [facility] Pravastatin Sodium 20 Mg Tablet Bedtime Active [facility] Tresiba [address] [facility] Allergies, Adverse Reactions, Alerts Substance Category Reaction Severity Reaction type Status Date Reported Comments Source Codeine Unknown Allergy to Substance Active 10/08/2018 [facility] Hydrocodone Unknown Allergy to Substance Active 10/08/2018 [facility] Butorphanol Unknown Allergy to Substance Active 10/08/2018 [facility] Immunizations No Data Provided for This Section Results Order Name Results Value Reference Range Date Interpretation Comments Source Blood leukocytes automated count (number/volume) 6.13 4.8 - 10.8 10/11/2018 [facility] Blood erythrocytes automated count (number/volume) 4.06 4.3 - 5.7 10/11/2018 [facility] Blood hemoglobin measurement (moles/volume) 12.5 14.0 - 18.0 10/11/2018 [facility] Automated blood hematocrit (volume fraction) 35.7 38.2 - 49.6 10/11/2018 [facility] Automated erythrocyte mean corpuscular volume 87.9 81 - 99 10/11/2018 [facility] Automated erythrocyte mean corpuscular hemoglobin (mass per erythrocyte) 30.8 28 - 32 10/11/2018 [facility] Automated erythrocyte mean corpuscular hemoglobin concentration measurement (mass/volume) 35.0 31 - 35 10/11/2018 [facility] RDW BldCo-Rto 12.1 11.7 - 14.4 10/11/2018 [facility] Automated blood platelet count (count/volume) 182 140 - 360 10/11/2018 [facility] Automated blood segmented neutrophil count as percentage of total leukocytes 64.5 38.7 - 80.0 10/11/2018 [facility] Automated blood lymphocyte count as percentage ot total leukocytes 21.0 18.0 - 39.1 10/11/2018 [facility] Automated blood monocyte count as percentage of total leukocytes 11.7 4.4 - 11.3 10/11/2018 [facility] Automated blood eosinophil count as percentage of total leukocytes 1.8 0.0 - 6.0 10/11/2018 [facility] Automated blood basophil count as percentage of total leukocytes 0.7 0.0 - 1.0 10/11/2018 [facility] IM GRANULOCYTES % 0.3 0.0 - 1.0 10/11/2018 [facility] Automated blood neutrophil count 4.0 2.1 - 6.9 10/11/2018 [facility] Blood lymphocytes count (number/volume) 1.3 1.0 - 3.2 10/11/2018 [facility] Blood monocytes automated count (number/volume) 0.7 0.2 - 0.8 10/11/2018 [facility] Automated blood eosinophil count 0.1 0.0 - 0.4 10/11/2018 [facility] Automated blood basophil count (count/volume) 0.0 0.0 - 0.1 10/11/2018 [facility] Absolute Immature Granulocyte (auto 0.02 0 - 0.1 10/11/2018 [facility] Serum or plasma sodium measurement (moles/volume) 136 136 - 145 10/11/2018 [facility] Serum or plasma potassium measurement (moles/volume) 3.2 3.5 - 5.1 10/11/2018 [facility] Serum or plasma chloride measurement (moles/volume) 104 98 - 107 10/11/2018 [facility] Serum or plasma carbon dioxide, total measurement (moles/volume) 26 22 - 29 10/11/2018 [facility] Serum or plasma anion gap 9.2 8 - 16 10/11/2018 [facility] Serum or plasma urea nitrogen measurement (mass/volume) 7 7 - 26 10/11/2018 [facility] Serum or plasma creatinine measurement (mass/volume) 0.72 0.72 - 1.25 10/11/2018 [facility] Serum or plasma urea nitrogen/creatinine mass ratio 10 6 - 25 10/11/2018 [facility] Estimated glomerular filtration rate (GFR) determination > 60 60 10/11/2018 [facility] Glucose measurement 135 74 - 118 10/11/2018 [facility] Serum or plasma calcium measurement (mass/volume) 8.8 8.4 - 10.2 10/11/2018 [facility] Serum or plasma total bilirubin measurement (mass/volume) 0.6 0.2 - 1.2 10/11/2018 [facility] Aspartate Amino Transf (AST/SGOT) 22 5 - 34 10/11/2018 [facility] Serum or plasma alanine aminotransferase measurement (enzymatic activity/volume) 16 0 - 55 10/11/2018 [facility] Serum or plasma protein measurement (mass/volume) 6.2 6.5 - 8.1 10/11/2018 [facility] Serum or plasma albumin measurement (mass/volume) 3.2 3.5 - 5.0 10/11/2018 [facility] Plasma globulin measurement (mass/volume) 3.0 2.3 - 3.5 10/11/2018 [facility] Serum or plasma albumin/globulin mass ratio 1.1 0.8 - 2.0 10/11/2018 [facility] Serum or plasma alkaline phosphatase measurement (enzymatic activity/volume) 65 40 - 150 10/11/2018 [facility] Capillary blood glucose measurement by glucometer (mass/volume) 161 70 - 120 10/08/2018 [facility] Lactic Acid Level 8.8 4.5 - 19.8 10/08/2018 [facility] Urine color determination YELLOW YELLOW 10/06/2018 [facility] Urine clarity CLEAR CLEAR 10/06/2018 [facility] Specific gravity of Urine by Test strip 1.015 1.010 - 1.025 10/06/2018 [facility] Urine pH measurement by automated test strip 6.5 5 - 7 10/06/2018 [facility] Urine leukocyte esterase detection by dipstick NEGATIVE NEGATIVE 10/06/2018 [facility] Urine nitrite detection NEGATIVE NEGATIVE 10/06/2018 [facility] Urine protein measurement by test strip (mass/volume) NEGATIVE NEGATIVE 10/06/2018 [facility] Urine glucose detection 2+ NEGATIVE 10/06/2018 [facility] Urine ketones detection by automated test strip TRACE NEGATIVE 10/06/2018 [facility] Urine urobilinogen measurement by test strip (mass/volume) 0.2 0.2 - 1 10/06/2018 [facility] Urine total bilirubin measurement (mass/volume) NEGATIVE NEGATIVE 10/06/2018 [facility] Urine erythrocytes detection NEGATIVE NEGATIVE 10/06/2018 [facility] Automated urine sediment leukocyte count by microscopy (number/high power field) 0-5 0 - 5 10/06/2018 [facility] Erythrocytes detection in urine sediment by light microscopy NONE 0 - 5 10/06/2018 [facility] Bacteria detection in urine sediment by light microscopy FEW NONE 10/06/2018 [facility] Epithelial cells detection in urine sediment by light microscopy NONE NONE 10/06/2018 [facility] Transitional cells detection in urine sediment by light microscopy FEW NONE 10/06/2018 [facility] Mucus detection in urine sediment by light microscopy RARE RARE 10/06/2018 [facility] Serum or plasma triglyceride measurement (mass/volume) 117 0 - 149 09/16/2018 [facility] Serum or plasma cholesterol measurement (mass/volume) 145 0 - 199 09/16/2018 [facility] Serum or plasma cholesterol in LDL measurement (mass/volume) 69 60 - 130 09/16/2018 [facility] Serum or plasma cholesterol in HDL measurement (mass/volume) 53 40 - 60 09/16/2018 [facility] Serum or plasma total cholesterol/cholesterol in HDL mass ratio 2.7 3.9 - 4.7 09/16/2018 [facility] Serum or plasma creatine kinase measurement (enzymatic activity/volume) 178 30 - 200 09/16/2018 [facility] Serum or plasma creatine kinase MB measurement (mass/volume) 7.00 0 - 5.0 09/16/2018 [facility] Troponin I measurement by highly sensitive enzyme immunoassay 0.015 0 - 0.300 09/16/2018 [facility] Prothrombin time (PT) in platelet poor plasma by coagulation assay 13.4 11.9 - 14.5 09/15/2018 [facility] INR in Platelet poor plasma by Coagulation assay 0.94 09/15/2018 [facility] Activated partial thromboplastin time (aPTT) in platelet poor plasma bycoagulation assay 30.3 23.8 - 35.5 09/15/2018 [facility] Serum or plasma magnesium measurement (mass/volume) 2.2 1.3 - 2.1 09/15/2018 [facility] Serum or plasma amylase measurement (enzymatic activity/volume) 49 25 - 125 09/15/2018 [facility] Serum or plasma lipase measurement (enzymatic activity/volume) 31 8 - 78 09/15/2018 [facility] Hyaline casts detection in urine sediment by light microscopy 0-1 0 - 1 09/15/2018 [facility] Pathology Reports No Data Provided for This [...] DC Date Status Source Discharged Inpatient (obs) [id number] MT HARRISON MD 09/15/2018 09/16/2018 [facility] Discharged Inpatient (obs) [id number] GAGE AMAYA MD 10/06/2018 10/07/2018 [facility] Discharged Inpatient (obs) [id number] GAGE AMAYA MD 10/08/2018 10/11/2018 [facility] Procedures Procedure Code Date Perfomer Comments Source CT of abdomen and pelvis without contrast [id number] 10/06/[address] [facility] Assessment and Plan No Data Provided for This Section Plan of Care Plan of Care Date Source Discharge Date 10/11/18 10:16am Disposition HOME, SELF-CARE Instructions/Education Provided Constipation - Adult Prescriptions See Medication Section Additional Instructions/Education CONTINUE HIGH FIBER DIET DIRECTED FOLLOW UP WITH [facility] IN 7-10 DAYS FOLLOW UP WITH GI SPECIALIST INSTRUCTED FOR COLONOSCOPY JOEY MONTEZ 10/11/2018 [facility] Social History Social History Date Source Social [...] Start Date Stop Date Former smoker 10/11/2018 [facility] Family History Value Date Source Relationship Condition [...] diabetes mellitus Not Recorded 05/15/2016 4:04am 10/11/2018 [facility] Advance Directives Order Name Results Value Date Source Advance Directives Advance Directives Directive Response Recorded Date/Time Does the patient have an advance directive? No 10/09/18 8:35pm If yes, is advance directive on file with [facility]? No 10/09/18 8:35pm If not on file with [facility] will patient provide a copy? No 10/09/18 8:35pm Do you have a Directive to Physician? No 10/08/18 4:50pm Do you have a Medical Power of Construction Sales Manager? No 10/08/18 4:50pm Do you have an [...] rights and responsibilities? Yes 10/08/18 4:50pm 10/11/2018 [facility] Functional Status No Data Provided for This Section
[2019-06-15 10:43] VITALS: BP 157/82
== END 2019-06-15 10:46 | disposition home or self-care (01) ==
LOC: FSED 09:14
DX: F41.1 Generalized anxiety disorder (principal); Z91.14 Patient's other noncompliance with medication regimen
CPT/HCPCS: 99282

== ENCOUNTER 2019-09-16 20:30 | Emergency (ER) | payer MEDICARE ==
[~2019-09-16] VITALS: Ht 175.3 cm; Wt 78.9 kg
[2019-09-16] MEDS ORDERED: ALPRAZOLAM 0.25 MG TAB ONE (21:29)
[2019-09-16] MEDS ORDERED: ONDANSETRON HCL 4 MG ORAL DISINTEGRATING TAB ONE (21:40)
== END 2019-09-16 22:10 | disposition home or self-care (01) ==
LOC: FSED 20:30
DX: F41.1 Generalized anxiety disorder (principal); E11.65 Type 2 diabetes mellitus with hyperglycemia; I10 Essential (primary) hypertension
CPT/HCPCS: 80053; 81003; 84484; 85025; 93005; 99283; Q0162

== ENCOUNTER 2021-07-08 10:15 | Emergency (ER) | payer MEDICARE ==
[~2021-07-08] VITALS: Ht 175.3 cm; Wt 75.3 kg
[2021-07-08] MEDS ORDERED: LIDOCAINE PAIN1 EACH TD (11:37)
== END 2021-07-08 12:09 | disposition home or self-care (01) ==
LOC: FSED 10:32
DX: M54.2 Cervicalgia (principal); I10 Essential (primary) hypertension; E11.9 Type 2 diabetes mellitus without complications; E78.5 Hyperlipidemia, unspecified; K21.9 Gastro-esophageal reflux disease without esophagitis; F41.9 Anxiety disorder, unspecified; E78.00 Pure hypercholesterolemia, unspecified
CPT/HCPCS: 99282

== ENCOUNTER 2021-12-07 16:10 | Emergency (ER) | payer MEDICARE ==
[~2021-12-07] VITALS: Ht 175.3 cm; Wt 69.9 kg
[~2021-12-07 16:10] MED LIST changes: +LIDOCAINE PAIN1 EACH TD
[2021-12-07] MEDS ORDERED: KETOROLAC TROMETHAMINE 30 MG/ML VIAL IV STA (16:29)
[2021-12-07] MEDS ORDERED: SODIUM CHLORIDE 0.9% 1000ML 1,000 ML IV ONE (16:30)
[2021-12-07] MEDS ORDERED: ONDANSETRON HCL 4 MG ORAL DISINTEGRATING TAB PO ONE (16:45)
[2021-12-07] MEDS ORDERED: ONDANSETRON HCL INJ 2MG/ML 2ML 2 MG/ML VIAL IV STA ×2 (16:46→17:48)
[2021-12-07] MEDS ORDERED: ONDANSETRON HCL INJ 2MG/ML 2ML 2 MG/ML VIAL ONE ×2 (16:54→18:06)
[2021-12-07] MEDS ORDERED: BUSPIRONE HCL5 MG PO (17:03)
[2021-12-07] MEDS ORDERED: MOLNUPIRAVIR (200 MG PO (18:32)
[2021-12-07] MEDS ORDERED: ONDANSETRON ODT4 MG PO (18:34)
== END 2021-12-07 18:44 | disposition home or self-care (01) ==
LOC: FSED 16:30
DX: U07.1 COVID-19 (principal); E86.1 Hypovolemia; E86.0 Dehydration; E11.65 Type 2 diabetes mellitus with hyperglycemia; R11.0 Nausea; I10 Essential (primary) hypertension; K21.9 Gastro-esophageal reflux disease without esophagitis; E78.5 Hyperlipidemia, unspecified; F41.9 Anxiety disorder, unspecified
CPT/HCPCS: 80053; 85025; 96374; 96375; 99284; J1885; J2405; J7030; U0002

== ENCOUNTER 2023-01-29 13:07 | Emergency (ER) | payer MEDICARE ==
[~2023-01-29] VITALS: Ht 175.3 cm; Wt 74.2 kg
[~2023-01-29 13:07] MED LIST changes: +BUSPIRONE HCL5 MG PO; +MOLNUPIRAVIR (200 MG PO; +ONDANSETRON ODT4 MG PO
[2023-01-29] MEDS ORDERED: NAPROXEN250 MG PO (13:39)
[2023-01-29] MEDS ORDERED: CLOPIDOGREL75 MG PO (13:39)
[2023-01-29] MEDS ORDERED: TIZANIDINE HCL4 M1 PO (13:39)
[2023-01-29] MEDS ORDERED: TRAZODONE HCL50 MG PO (13:39)
[2023-01-29] MEDS ORDERED: DEXAMETHASONE SOD PHOS 10 MG/1 ML VIAL IM ONE (14:15)
[2023-01-29] MEDS ORDERED: TRAMADOL HCL 50 MG TAB PO ONE (14:15)
[2023-01-29] MEDS ORDERED: ULTRAM 50MG50 MG PO (14:29)
[2023-01-29] MEDS ORDERED: TRAMADOL HCL 50 MG TAB ONE (14:30)
[2023-01-29] MEDS ORDERED: DEXAMETHASONE SOD PHOS INJ 4 MG/ML SDV ONE (14:30)
== END 2023-01-29 14:57 | disposition home or self-care (01) ==
LOC: FSED 13:18
DX: M54.16 Radiculopathy, lumbar region (principal); E11.65 Type 2 diabetes mellitus with hyperglycemia; I10 Essential (primary) hypertension; E78.5 Hyperlipidemia, unspecified; I25.10 Atherosclerotic heart disease of native coronary artery without angina pectoris; F41.9 Anxiety disorder, unspecified
CPT/HCPCS: 36415; 82948; 96372; 99283; J1100 ×2